=== PATIENT | female | born 1935 | race Hispanic/Latino ===

== ENCOUNTER 2016-09-29 09:55 | Outpatient (CLI) | payer MEDICARE, MEDICAID ==
[2016-09-29 10:51] LABS: Hemoglobin 10.2 g/dL (12.0-16.0)
[2016-09-29 11:04] LABS: Anion Gap 16 mmol/L (10-20); BUN (Urea Nitrogen) 28 mg/dL (9.8-20.1); Calc. Creatinine Clearance 0 mL/min (70-130); Calcium 8.7 mg/dL (7.8-10.44); Carbon Dioxide 25 mmol/L (23-31); Chloride 101 mmol/L (98-107); Estimated GFR-MDRD 51; Glucose 149 mg/dL (83-110); Potassium 4.1 mmol/L (3.5-5.1); Sodium 138 mmol/L (136-145)
[2016-09-29 18:18] LABS: Creatinine, Urine 74.31 mg/dL (47-110)
== END 2016-09-29 09:56 | disposition home or self-care (01) ==
LOC: NAV LAB 09:55
PROVIDERS: ATTEND Internal Medicine Nephrology
DX: I12.9 Hypertensive chronic kidney disease with stage 1 through stage 4 chronic kidney disease, or unspecified chronic kidney disease (principal); N18.3 Chronic kidney disease, stage 3 (moderate); D63.1 Anemia in chronic kidney disease
CPT/HCPCS: 36415; 80048; 82040; 82306; 82570; 84156; 85014; 85018

== ENCOUNTER 2017-12-21 12:23 | Emergency (ER) | payer MEDICARE, MEDICAID ==
[2017-12-21] MEDS ORDERED: Sodium Chloride 0.9% 1,000 ML ONE (12:41)
[2017-12-21 13:22] LABS: #Eosinphils 0.1 thou/uL (0.0-0.7); #Lymphocytes 1.9 thou/uL (1.20-3.40); #Monocytes 0.7 thou/uL (0.11-0.59); %Basophils 0.5 % (0.0-1.0); %Lymphocytes 24.9 % (21.0-51.0); %Monocytes 8.6 % (0.0-10.0); Hemoglobin 11.5 g/dL (12.0-16.0); Mean Corpuscular HGB CONC 31.7 g/dL (32.0-36.0); Mean Corpuscular Hemoglobin 29.1 pg (27.0-31.0); Mean Corpuscular Volume 91.8 fL (78.0-98.0); Mean Platelet Volume 7.1 fL (7.4-10.4); Platelet Count 258 thou/uL (130-400); RBC Distribution Width 14.7 % (11.5-14.5); Red Blood Cell (RBC) Count 3.94 mill/uL (4.20-5.40); White Blood Cell (WBC) Count 7.7 thou/uL (4.8-10.8)
[2017-12-21 13:36] LABS: ALT (SGPT) 13 U/L (8-55); AST (SGOT) 13 U/L (5-34); Albumin 3.7 g/dL (3.4-4.8); Alkaline Phosphatase 65 U/L (40-150); Anion Gap 17 mmol/L (10-20); BUN (Urea Nitrogen) 27 mg/dL (9.8-20.1); Bilirubin, Total 0.4 mg/dL (0.2-1.2); CK (CPK) 112 U/L (29-168); Calc. Creatinine Clearance 0 mL/min (70-130); Calcium 9.2 mg/dL (7.8-10.44); Carbon Dioxide 19 mmol/L (23-31); Chloride 106 mmol/L (98-107); Estimated GFR-MDRD 32; Glucose 251 mg/dL (83-110); Potassium 3.9 mmol/L (3.5-5.1); Protein, Total 6.7 g/dL (6.0-8.3); Sodium 138 mmol/L (136-145)
[2017-12-21 13:38] LABS: CKMB 2.2 ng/mL (0-6.6); Troponin I 0.033 ng/mL (< 0.028)
--- NOTE | 2017-12-21 14:45 | CT ---
CT HEAD NONCONTRAST: Date: 12/21/17 CLINICAL INDICATION: Altered mental status. FINDINGS: There is mild prominence of the ventricular system and moderate chronic ischemic disease involving th e cerebral white matter. There is no acute intracranial hemorrhage, mass effect, or midline shift. Th e calvarium is intact. No acute fluid level of the imaged paranasal sinuses. There is decreased pneum atization of the mastoid air cells. IMPRESSION: 1. No evidence of acute intracranial hemorrhage or mass effect. 2. Moderate chronic ischemic disease. POS: [facility]
== END 2017-12-21 14:53 | disposition short-term general hospital (02) ==
LOC: NAV ERS 12:23
DX: R00.1 Bradycardia, unspecified (principal); N28.9 Disorder of kidney and ureter, unspecified; E11.9 Type 2 diabetes mellitus without complications; E78.5 Hyperlipidemia, unspecified; I10 Essential (primary) hypertension; E03.9 Hypothyroidism, unspecified; F32.9 Major depressive disorder, single episode, unspecified; Z79.899 Other long term (current) drug therapy; Z79.84 Long term (current) use of oral hypoglycemic drugs; Z79.82 Long term (current) use of aspirin
CPT/HCPCS: 36416; 70450; 80053; 82550; 82553; 84484; 85025; 93005; J7050

== ENCOUNTER 2017-12-30 13:13 | Emergency (ER) | payer MEDICARE, MEDICAID ==
[2017-12-30] MEDS ORDERED: HYDROcodone/Acetaminophen 5/325 mg Tablet ONE (13:48)
--- NOTE | 2017-12-30 14:16 | RAD ---
3 VIEW RIGHT FOOT: Date: 12/30/17 INDICATION: Right foot pain. Arthritis. FINDINGS: Reference made to 01/04/07 exam. There is pes planus deformity. Redemonstration of heterotopic density underlying the calcaneus. There are scattered degenerative changes throughout the right foot with osseous demineralization. There is chronic malalignment of the first ray. IMPRESSION: Chronic appearing abnormalities of the right foot without evidence of an acute osseous abnormality. POS: [facility]
== END 2017-12-30 14:46 | disposition home or self-care (01) ==
LOC: NAV ERS 13:13
DX: M72.2 Plantar fascial fibromatosis (principal); M79.671 Pain in right foot; I10 Essential (primary) hypertension; E11.9 Type 2 diabetes mellitus without complications; E78.5 Hyperlipidemia, unspecified; E66.9 Obesity, unspecified; E03.9 Hypothyroidism, unspecified; F32.9 Major depressive disorder, single episode, unspecified; Z79.84 Long term (current) use of oral hypoglycemic drugs; Z79.899 Other long term (current) drug therapy; Z79.82 Long term (current) use of aspirin

== ENCOUNTER 2018-01-29 21:28 | Emergency (ER) | payer MEDICARE, MEDICAID ==
[2018-01-29] MEDS ORDERED: hydrALAZINE 20 MG/ML VIAL ONE (22:17)
[2018-01-29] MEDS ORDERED: Furosemide 40 MG/4 ML VIAL ONE (22:17)
[2018-01-29 22:27] LABS: #Basophils 0.1 thou/uL (0.0-0.2); #Lymphocytes 1.4 thou/uL (1.20-3.40); #Monocytes 0.6 thou/uL (0.11-0.59); #Neutrophils 4.9 thou/uL (1.40-6.50); %Basophils 0.8 % (0.0-1.0); %Eosinophils 0.7 % (0.0-10.0); %Lymphocytes 20.4 % (21.0-51.0); %Neutrophils 70.1 % (42.0-75.0); Hemoglobin 10.4 g/dL (12.0-16.0); Mean Corpuscular HGB CONC 31.4 g/dL (32.0-36.0); Mean Corpuscular Hemoglobin 28.7 pg (27.0-31.0); Mean Corpuscular Volume 91.5 fL (78.0-98.0); Mean Platelet Volume 7.5 fL (7.4-10.4); PLT Morphology Comment Appears Adequate; Platelet Count 140 thou/uL (130-400); RBC Morphology Normal; Red Blood Cell (RBC) Count 3.61 mill/uL (4.20-5.40); White Blood Cell (WBC) Count 6.9 thou/uL (4.8-10.8)
[2018-01-29 22:30] LABS: ALT (SGPT) 13 U/L (8-55); AST (SGOT) 13 U/L (5-34); Albumin 3.9 g/dL (3.4-4.8); Alkaline Phosphatase 79 U/L (40-150); Anion Gap 17 mmol/L (10-20); BUN (Urea Nitrogen) 24 mg/dL (9.8-20.1); Bilirubin, Total 0.3 mg/dL (0.2-1.2); CK (CPK) 60 U/L (29-168); Calc. Creatinine Clearance 0 mL/min (70-130); Calcium 9.5 mg/dL (7.8-10.44); Carbon Dioxide 21 mmol/L (23-31); Chloride 104 mmol/L (98-107); Estimated GFR-MDRD 52; Glucose 268 mg/dL (83-110); Potassium 4.5 mmol/L (3.5-5.1); Protein, Total 6.9 g/dL (6.0-8.3); Sodium 137 mmol/L (136-145)
[2018-01-29 22:32] LABS: CKMB 1.4 ng/mL (0-6.6); Troponin I 0.025 ng/mL (< 0.028)
[2018-01-29] MEDS ORDERED: Metoprolol Tartrate 5 MG/5 ML VIAL ONE (23:14)
--- NOTE | 2018-01-29 23:43 | RAD ---
FRONTAL RADIOGRAPH CHEST 01/29/18 COMPARISON: None. HISTORY: Hypertension and edema. FINDINGS: There are old posterolateral right sided rib fractures. There is no pneumothorax, pleural fluid, loba r consolidation, or alveolar edema. IMPRESSION: No acute findings. POS: [facility]
[2018-01-29] MEDS ORDERED: Acetaminophen 500 MG TAB ONE (23:45)
[2018-01-30] MEDS ORDERED: Acetaminophen 500 MG TAB ONE (00:31)
== END 2018-01-30 01:30 | disposition home or self-care (01) ==
LOC: NAV ERS 21:28
DX: I10 Essential (primary) hypertension (principal); E11.9 Type 2 diabetes mellitus without complications; E78.5 Hyperlipidemia, unspecified; E03.9 Hypothyroidism, unspecified; F32.9 Major depressive disorder, single episode, unspecified; Z79.82 Long term (current) use of aspirin; Z79.899 Other long term (current) drug therapy; Z79.84 Long term (current) use of oral hypoglycemic drugs
CPT/HCPCS: 71045; 80053; 82550; 82553; 83880; 84484; 85025; 93005; 96374; 96375; J0360; J1940

== ENCOUNTER 2018-03-21 23:32 | Emergency (ER) | payer MEDICARE, MEDICAID ==
[2018-03-22] MEDS ORDERED: Ondansetron ODT 4 MG TAB ONE (00:12)
[2018-03-22 00:19] LABS: #Lymphocytes 1.3 thou/uL (1.20-3.40); #Monocytes 0.6 thou/uL (0.11-0.59); #Neutrophils 4.4 thou/uL (1.40-6.50); %Basophils 0.5 % (0.0-1.0); %Eosinophils 0.7 % (0.0-10.0); %Lymphocytes 20.4 % (21.0-51.0); %Neutrophils 69.4 % (42.0-75.0); Hemoglobin 10.7 g/dL (12.0-16.0); Mean Corpuscular HGB CONC 31.9 g/dL (32.0-36.0); Mean Corpuscular Volume 90.8 fL (78.0-98.0); Mean Platelet Volume 7.4 fL (7.4-10.4); Platelet Count 254 thou/uL (130-400); RBC Distribution Width 14.4 % (11.5-14.5); White Blood Cell (WBC) Count 6.3 thou/uL (4.8-10.8)
[2018-03-22 00:39] LABS: ALT (SGPT) 15 U/L (8-55); AST (SGOT) 12 U/L (5-34); Albumin 4.1 g/dL (3.4-4.8); Alkaline Phosphatase 91 U/L (40-150); Anion Gap 16 mmol/L (10-20); BUN (Urea Nitrogen) 24 mg/dL (9.8-20.1); Bilirubin, Total 0.3 mg/dL (0.2-1.2); Calc. Creatinine Clearance 0 mL/min (70-130); Calcium 9.8 mg/dL (7.8-10.44); Carbon Dioxide 21 mmol/L (23-31); Chloride 103 mmol/L (98-107); Estimated GFR-MDRD 39; Globulin 3.3 g/dL (2.4-3.5); Glucose 319 mg/dL (83-110); Protein, Total 7.4 g/dL (6.0-8.3); Sodium 136 mmol/L (136-145)
== END 2018-03-22 00:50 | disposition home or self-care (01) ==
LOC: NAV ERS 23:32
DX: E11.65 Type 2 diabetes mellitus with hyperglycemia (principal); I10 Essential (primary) hypertension; E78.5 Hyperlipidemia, unspecified; E03.9 Hypothyroidism, unspecified; Z79.82 Long term (current) use of aspirin; Z79.899 Other long term (current) drug therapy; Z79.84 Long term (current) use of oral hypoglycemic drugs
CPT/HCPCS: 36415; 80053; 84484; 85025; 93005; Q0162

== ENCOUNTER 2018-03-28 00:37 | Emergency (ER) | payer MEDICARE, MEDICAID | END 2018-03-28 01:10 | disposition home or self-care (01) | LOC: NAV ERS 00:37 | DX: E11.65 Type 2 diabetes mellitus with hyperglycemia (principal); I10 Essential (primary) hypertension; R19.7 Diarrhea, unspecified; F32.9 Major depressive disorder, single episode, unspecified; E78.5 Hyperlipidemia, unspecified; E66.9 Obesity, unspecified; E03.9 Hypothyroidism, unspecified; Z79.899 Other long term (current) drug therapy; Z79.84 Long term (current) use of oral hypoglycemic drugs; Z79.82 Long term (current) use of aspirin | CPT/HCPCS: 36416; 93005 ==

== ENCOUNTER 2018-03-31 16:34 | Emergency (ER) | payer MEDICARE, MEDICAID ==
[2018-03-31] MEDS ORDERED: methylPREDNISolone Sod Succ/PF 125 MG/2 ML VIAL ONE (17:09)
[2018-03-31] MEDS ORDERED: diphenhydrAMINE 50 MG/ML VIAL ONE (17:09)
[2018-03-31] MEDS ORDERED: Sodium Chloride 0.9% 1,000 ML ONE (17:09)
[2018-03-31 17:30] LABS: #Basophils 0.1 thou/uL (0.0-0.2); #Eosinphils 0.1 thou/uL (0.0-0.7); #Lymphocytes 1.7 thou/uL (1.20-3.40); #Monocytes 0.6 thou/uL (0.11-0.59); #Neutrophils 5.3 thou/uL (1.40-6.50); %Basophils 0.8 % (0.0-1.0); %Eosinophils 1.1 % (0.0-10.0); %Lymphocytes 21.9 % (21.0-51.0); %Monocytes 7.4 % (0.0-10.0); %Neutrophils 68.8 % (42.0-75.0); Hemoglobin 11.4 g/dL (12.0-16.0); Mean Corpuscular HGB CONC 30.7 g/dL (32.0-36.0); Mean Corpuscular Hemoglobin 28.2 pg (27.0-31.0); Mean Corpuscular Volume 91.9 fL (78.0-98.0); Mean Platelet Volume 7.3 fL (7.4-10.4); Platelet Count 298 thou/uL (130-400); RBC Distribution Width 14.9 % (11.5-14.5); Red Blood Cell (RBC) Count 4.05 mill/uL (4.20-5.40); White Blood Cell (WBC) Count 7.6 thou/uL (4.8-10.8)
[2018-03-31 17:46] LABS: ALT (SGPT) 12 U/L (8-55); AST (SGOT) 13 U/L (5-34); Albumin 4.1 g/dL (3.4-4.8); Alkaline Phosphatase 77 U/L (40-150); Anion Gap 20 mmol/L (10-20); BUN (Urea Nitrogen) 25 mg/dL (9.8-20.1); Bilirubin, Total 0.2 mg/dL (0.2-1.2); Calc. Creatinine Clearance 0 mL/min (70-130); Calcium 9.7 mg/dL (7.8-10.44); Carbon Dioxide 20 mmol/L (23-31); Chloride 102 mmol/L (98-107); Estimated GFR-MDRD 45; Globulin 3.1 g/dL (2.4-3.5); Glucose 292 mg/dL (83-110); Potassium 5.5 mmol/L (3.5-5.1); Protein, Total 7.2 g/dL (6.0-8.3); Sodium 136 mmol/L (136-145)
--- NOTE | 2018-03-31 17:58 | RAD ---
RADIOGRAPH CHEST 1 VIEW: 03/31/18 HISTORY: 82-year-old female with chest pain and dyspnea. FINDINGS: There are no air space densities, pulmonary edema, pneumothorax, or cardiomegaly. The lateral costop hrenic angles are sharp. IMPRESSION: No acute cardiopulmonary findings. tami [] POS: [facility]
[2018-03-31] MEDS ORDERED: Insulin Regular 300 UNITS/3 ML VIAL ONE (18:18)
[2018-03-31 20:46] LABS: Anion Gap 16 mmol/L (10-20); BUN (Urea Nitrogen) 24 mg/dL (9.8-20.1); Calc. Creatinine Clearance 0 mL/min (70-130); Calcium 9.8 mg/dL (7.8-10.44); Carbon Dioxide 22 mmol/L (23-31); Chloride 108 mmol/L (98-107); Estimated GFR-MDRD 46; Glucose 218 mg/dL (83-110); Potassium 4.5 mmol/L (3.5-5.1); Sodium 141 mmol/L (136-145)
[2018-03-31 20:50] LABS: Troponin I Less than 0.010 ng/mL (< 0.028)
[2018-04-01 02:54] LABS: Troponin I Less than 0.010 ng/mL (< 0.028)
== END 2018-04-01 04:41 | disposition home or self-care (01) ==
LOC: NAV ERS 16:34
DX: R07.89 Other chest pain (principal); E11.65 Type 2 diabetes mellitus with hyperglycemia; E87.5 Hyperkalemia; E66.9 Obesity, unspecified; E03.9 Hypothyroidism, unspecified; M19.90 Unspecified osteoarthritis, unspecified site; G47.30 Sleep apnea, unspecified; F32.9 Major depressive disorder, single episode, unspecified; Z79.899 Other long term (current) drug therapy; Z79.84 Long term (current) use of oral hypoglycemic drugs; Z79.82 Long term (current) use of aspirin
CPT/HCPCS: 36415; 71045; 80053; 84484; 85025; 93005; 96361; 96374; 96375; J1200; J1815; J2930; J7050

== ENCOUNTER 2018-04-04 22:37 | Emergency (ER) | payer MEDICARE, MEDICAID ==
[2018-04-04] MEDS ORDERED: Sodium Chloride 0.9% 1,000 ML ONE (23:10)
[2018-04-04 23:34] LABS: Hemoglobin 10.8 g/dL (12.0-16.0); Lymphocytes 10 % (21-51); MDiff Complete? YES; Mean Corpuscular HGB CONC 30.3 g/dL (32.0-36.0); Mean Corpuscular Volume 92.5 fL (78.0-98.0); Mean Platelet Volume 7.3 fL (7.4-10.4); Monocytes 4 % (0-10); Neutrophil 86 % (42-75); Platelet Count 270 thou/uL (130-400); Platelet Morphology Comment Appears Adequate; RBC Distribution Width 14.6 % (11.5-14.5); RBC Morphology Normal; Red Blood Cell (RBC) Count 3.87 mill/uL (4.20-5.40); White Blood Cell (WBC) Count 8.1 thou/uL (4.8-10.8)
[2018-04-04 23:35] LABS: Calcium, Ionized 1.21 mmol/L (1.12-1.32); Hemoglobin - Calc 12.5 g/dL (12.0-18.0); Potassium 4.6 mmol/L (3.4-4.7); T. Carbon Dioxide 28.1 mmol/L (1.0-85.0)
[2018-04-04 23:36] LABS: pH (Venous) 7.392 (7.35-7.45)
[2018-04-04 23:37] LABS: ALT (SGPT) 19 U/L (8-55); AST (SGOT) 17 U/L (5-34); Albumin 4.3 g/dL (3.4-4.8); Alkaline Phosphatase 102 U/L (40-150); Anion Gap 20 mmol/L (10-20); BUN (Urea Nitrogen) 38 mg/dL (9.8-20.1); Base Excess-Venous 1.5 mmol/L (0 (+/- 2.5)); Bicarbonate (HCO3v) 26.8 mmol/L (22.0-29.0); Bilirubin, Total 0.3 mg/dL (0.2-1.2); Calc. Creatinine Clearance 0 mL/min (70-130); Calcium 10.6 mg/dL (7.8-10.44); Carbon Dioxide 22 mmol/L (23-31); Chloride 96 mmol/L (98-107); Estimated GFR-MDRD 33; Globulin 3.7 g/dL (2.4-3.5); Glucose 539 mg/dL (83-110); Potassium 4.8 mmol/L (3.5-5.1); Sodium 133 mmol/L (136-145); vO2 Saturation-calc 97.3 % (94-98)
[2018-04-05] MEDS ORDERED: Sodium Chloride 0.9% 1,000 ML ONE (00:23)
== END 2018-04-05 02:07 | disposition home or self-care (01) ==
LOC: NAV ERS 22:37
DX: E11.65 Type 2 diabetes mellitus with hyperglycemia (principal); I10 Essential (primary) hypertension; E78.5 Hyperlipidemia, unspecified; E66.9 Obesity, unspecified; E03.9 Hypothyroidism, unspecified; G47.30 Sleep apnea, unspecified; F32.9 Major depressive disorder, single episode, unspecified; Z79.899 Other long term (current) drug therapy; Z79.84 Long term (current) use of oral hypoglycemic drugs; Z79.82 Long term (current) use of aspirin
CPT/HCPCS: 36415; 36416; 80053; 82330; 82803; 85014; 85025; 94760; 96360; 96361; J7050

== ENCOUNTER 2018-04-20 22:07 | Emergency (ER) | payer MEDICARE, MEDICAID | END 2018-04-20 22:51 | disposition home or self-care (01) | LOC: NAV ERS 22:07 | DX: F41.9 Anxiety disorder, unspecified (principal); F32.9 Major depressive disorder, single episode, unspecified; E78.5 Hyperlipidemia, unspecified; E11.9 Type 2 diabetes mellitus without complications; I10 Essential (primary) hypertension; E66.9 Obesity, unspecified; E03.9 Hypothyroidism, unspecified; G47.30 Sleep apnea, unspecified; Z79.82 Long term (current) use of aspirin; Z79.84 Long term (current) use of oral hypoglycemic drugs; Z79.899 Other long term (current) drug therapy | CPT/HCPCS: 36416; 93005 ==

== ENCOUNTER 2018-05-19 10:59 | Emergency (ER) | payer MEDICARE, OTHER ==
[2018-05-19 11:52] LABS: #Basophils 0.1 thou/uL (0.0-0.2); #Eosinphils 0.1 thou/uL (0.0-0.7); #Lymphocytes 1.8 thou/uL (1.20-3.40); #Monocytes 0.7 thou/uL (0.11-0.59); #Neutrophils 5.1 thou/uL (1.40-6.50); %Basophils 0.8 % (0.0-1.0); %Lymphocytes 23.2 % (21.0-51.0); %Monocytes 8.5 % (0.0-10.0); %Neutrophils 66.5 % (42.0-75.0); Mean Corpuscular HGB CONC 30.1 g/dL (32.0-36.0); Mean Corpuscular Hemoglobin 28.3 pg (27.0-31.0); Mean Corpuscular Volume 93.9 fL (78.0-98.0); Mean Platelet Volume 7.4 fL (7.4-10.4); Platelet Count 232 thou/uL (130-400); RBC Distribution Width 16.1 % (11.5-14.5); Red Blood Cell (RBC) Count 3.52 mill/uL (4.20-5.40); White Blood Cell (WBC) Count 7.6 thou/uL (4.8-10.8)
[2018-05-19] MEDS ORDERED: Sodium Chloride 0.9% 500 ML ONE (12:03)
--- NOTE | 2018-05-19 12:06 | RAD ---
CHEST 1 VIEW: Date: 05/19/18 HISTORY: Chest pain. Shortness of breath. COMPARISON: Radiograph dated 03/31/18. FINDINGS: Heart size upper limits of normal. Mild pulmonary venous congestion. Old right-sided rib fractures wi th callus formation. No pneumothorax or large effusion. IMPRESSION: Cardiomegaly and mild pulmonary venous congestion. POS: [facility]
[2018-05-19 13:01] LABS: Bilirubin Negative (Negative); Blood, Urine Trace (Negative); Clarity Clear (Clear); Glucose, Urine (Dipstick) 500 mg/dL (Negative); Leukocyte Small (Negative); Nitrite Positive (Negative); Protein, Urine (Dipstick) Trace mg/dL (Neg-Trace); Specific Gravity, Urine 1.015 (1.005-1.030); Urobilinogen 0.2 mg/dL (0.2-1.0); pH, Urine 5.5 (5.0-9.0)
[2018-05-19 13:12] LABS: Bacteria/HPF 2+ HPF (None Seen); Other Microscopic Description NO; RBC/HPF 0-3 HPF (0-3); Squamous Epithelial 0-3 HPF (0-3); WBC/HPF 21-50 HPF (0-3)
[2018-05-19 14:03] LABS: ALT (SGPT) 33 U/L (8-55); AST (SGOT) 43 U/L (5-34); Albumin 3.9 g/dL (3.4-4.8); Alkaline Phosphatase 75 U/L (40-150); Anion Gap 17 mmol/L (10-20); BUN (Urea Nitrogen) 40 mg/dL (9.8-20.1); Bilirubin, Total 0.2 mg/dL (0.2-1.2); Calc. Creatinine Clearance 0 mL/min (70-130); Calcium 9.5 mg/dL (7.8-10.44); Carbon Dioxide 17 mmol/L (23-31); Chloride 104 mmol/L (98-107); Estimated GFR-MDRD 38; Globulin 2.9 g/dL (2.4-3.5); Glucose 273 mg/dL (83-110); Potassium 4.3 mmol/L (3.5-5.1); Protein, Total 6.8 g/dL (6.0-8.3); Sodium 134 mmol/L (136-145)
[2018-05-19] MEDS ORDERED: Sodium Chloride 0.9% 250 ML 250 ML ONE (14:43)
== END 2018-05-19 15:46 | disposition short-term general hospital (02) ==
LOC: NAV ERS 10:59
DX: A41.9 Sepsis, unspecified organism (principal); N39.0 Urinary tract infection, site not specified; E11.9 Type 2 diabetes mellitus without complications; E78.5 Hyperlipidemia, unspecified; E66.9 Obesity, unspecified; E03.9 Hypothyroidism, unspecified; G47.30 Sleep apnea, unspecified; F41.9 Anxiety disorder, unspecified; F32.9 Major depressive disorder, single episode, unspecified; Z79.899 Other long term (current) drug therapy; Z79.84 Long term (current) use of oral hypoglycemic drugs
CPT/HCPCS: 36415; 51701; 71045; 80053; 81003; 81015; 82550; 83605; 83880; 84484; 85025; 87040; 87077; 87086; 87149; 87186; 87804; 93005; 96361; 96365; 96375; A4353; J1956; J3370; J7050

== ENCOUNTER 2018-09-28 01:16 | Emergency (ER) | payer MEDICARE, MEDICAID ==
[2018-09-28] MEDS ORDERED: Aspirin Chewable 81 MG TAB ONE ×2 (01:35→01:36)
[2018-09-28] MEDS ORDERED: Nitroglycerin 0.4 MG TAB (25 Tab Bottle) ONE (01:47)
[2018-09-28] MEDS ORDERED: Ondansetron PF 4 MG/2 ML Vial ONE (01:47)
[2018-09-28 01:48] LABS: #Basophils 0.1 thou/uL (0.0-0.2); #Eosinphils 0.1 thou/uL (0.0-0.7); #Monocytes 0.6 thou/uL (0.11-0.59); %Basophils 1.2 % (0.0-1.0); %Eosinophils 1.5 % (0.0-10.0); %Neutrophils 59.3 % (42.0-75.0); Hemoglobin 9.1 g/dL (12.0-16.0); Mean Corpuscular HGB CONC 30.9 g/dL (32.0-36.0); Mean Corpuscular Hemoglobin 29.6 pg (27.0-31.0); Mean Corpuscular Volume 95.8 fL (78.0-98.0); Mean Platelet Volume 7.5 fL (7.4-10.4); Platelet Count 237 thou/uL (130-400); Red Blood Cell (RBC) Count 3.06 mill/uL (4.20-5.40); White Blood Cell (WBC) Count 6.7 thou/uL (4.8-10.8)
[2018-09-28 02:01] LABS: ALT (SGPT) 248 U/L (8-55); AST (SGOT) 347 U/L (5-34); Albumin 3.8 g/dL (3.4-4.8); Alkaline Phosphatase 131 U/L (40-150); Anion Gap 17 mmol/L (10-20); BUN (Urea Nitrogen) 30 mg/dL (9.8-20.1); Bilirubin, Total 0.4 mg/dL (0.2-1.2); Calc. Creatinine Clearance 0 mL/min (70-130); Calcium 8.9 mg/dL (7.8-10.44); Carbon Dioxide 20 mmol/L (23-31); Chloride 101 mmol/L (98-107); Estimated GFR-MDRD 41; Glucose 186 mg/dL (83-110); Potassium 5.3 mmol/L (3.5-5.1); Protein, Total 6.8 g/dL (6.0-8.3); Sodium 133 mmol/L (136-145)
[2018-09-28] MEDS ORDERED: Furosemide 40 MG/4 ML VIAL ONE (02:19)
--- NOTE | 2018-09-28 07:55 | RAD ---
PORTABLE CHEST ONE VIEW: 09/28/2018 1:28 a.m. HISTORY: Chest pain. COMPARISON: 07/22/2018 FINDINGS: The heart size is normal. There is mild pulmonary vascular congestion. No lobar consolidation, pneu mothoraces, or pleural effusions are seen. Old right-sided rib fractures are again noted. POS: [facility]
== END 2018-09-28 02:32 | disposition short-term general hospital (02) ==
LOC: NAV ERS 01:16
DX: I11.0 Hypertensive heart disease with heart failure (principal); I50.9 Heart failure, unspecified; D64.9 Anemia, unspecified; G47.30 Sleep apnea, unspecified; F32.9 Major depressive disorder, single episode, unspecified; F41.9 Anxiety disorder, unspecified; Z79.899 Other long term (current) drug therapy; Z79.82 Long term (current) use of aspirin; Z79.84 Long term (current) use of oral hypoglycemic drugs
CPT/HCPCS: 71045; 80053; 83880; 84484; 85025; 93005; 94760; 96374; 96375; J1940; J2405

== ENCOUNTER 2018-12-22 11:15 | Emergency (ER) | payer MEDICARE, MEDICAID | END 2018-12-22 12:00 | disposition home or self-care (01) | LOC: NAV ERS 11:15 | DX: H57.89 Other specified disorders of eye and adnexa (principal); E11.9 Type 2 diabetes mellitus without complications; E78.5 Hyperlipidemia, unspecified; I10 Essential (primary) hypertension; E03.9 Hypothyroidism, unspecified; M19.90 Unspecified osteoarthritis, unspecified site; G47.30 Sleep apnea, unspecified; E66.9 Obesity, unspecified; F41.9 Anxiety disorder, unspecified; F32.9 Major depressive disorder, single episode, unspecified; Z79.82 Long term (current) use of aspirin; Z79.899 Other long term (current) drug therapy | CPT/HCPCS: 99281 ==

== ENCOUNTER 2019-01-25 14:12 | Emergency (ER) | payer MEDICARE, MEDICAID ==
--- NOTE | 2019-01-25 14:57 | RAD ---
XR Foot Rt 3 View STANDARD INDICATION: History right foot pain COMPARISON: December 30, 2017 right foot radiographs FINDINGS: Bones: There is diffuse osteopenia. There is postprocedural change of a right great toe bunionectomy. . Joints: There is stable scattered IP osteoarthrosis involving the forefoot. There is stable osteoarth rosis involving the mid foot there is stable advanced osteoarthrosis of the right great toe MTP joint.. Lisfranc alignment: Lisfranc alignment appears within normal limits. Soft tissues: Soft tissue calcification seen plantar to the calcaneus is stable. IMPRESSION: No acute osseous abnormality. Stable exam.
== END 2019-01-25 15:12 | disposition home or self-care (01) ==
LOC: NAV ERS 14:12
DX: M19.071 Primary osteoarthritis, right ankle and foot (principal); E66.9 Obesity, unspecified; G47.30 Sleep apnea, unspecified; E78.5 Hyperlipidemia, unspecified; I10 Essential (primary) hypertension; F41.9 Anxiety disorder, unspecified; F32.9 Major depressive disorder, single episode, unspecified; Z79.899 Other long term (current) drug therapy; Z79.82 Long term (current) use of aspirin

== ENCOUNTER 2019-04-04 11:33 | Emergency (ER) | payer MEDICARE, MEDICAID ==
--- NOTE | 2019-04-04 12:15 | RAD ---
EXAM: Single view of the chest HISTORY: Chest pain COMPARISON: 09/28/2018 FINDINGS: Single view of the chest shows a normal sized cardiomediastinal silhouette. There is no nasir dence of consolidation, mass, or pleural effusion. The bones are unremarkable. IMPRESSION: No evidence of acute cardiopulmonary disease
[2019-04-04 12:32] LABS: #Eosinphils 0.1 thou/uL (0.0-0.7); #Lymphocytes 1.4 thou/uL (1.20-3.40); #Monocytes 0.6 thou/uL (0.11-0.59); #Neutrophils 5.6 thou/uL (1.40-6.50); %Basophils 0.5 % (0.0-1.0); %Eosinophils 1.2 % (0.0-10.0); %Lymphocytes 18.4 % (21.0-51.0); %Monocytes 7.4 % (0.0-10.0); %Neutrophils 72.4 % (42.0-75.0); Hemoglobin 11.1 g/dL (12.0-16.0); Mean Corpuscular HGB CONC 31.8 g/dL (32.0-36.0); Platelet Count 233 thou/uL (130-400); Red Blood Cell (RBC) Count 3.47 mill/uL (4.20-5.40); White Blood Cell (WBC) Count 7.7 thou/uL (4.8-10.8)
[2019-04-04 12:44] LABS: ALT (SGPT) 14 U/L (8-55); AST (SGOT) 15 U/L (5-34); Albumin 4.1 g/dL (3.4-4.8); Alkaline Phosphatase 63 U/L (40-110); Anion Gap 18 mmol/L (10-20); BUN (Urea Nitrogen) 70 mg/dL (9.8-20.1); Bilirubin, Total 0.3 mg/dL (0.2-1.2); CK (CPK) 49 U/L (29-168); Calc. Creatinine Clearance 0 mL/min (70-130); Calcium 9.2 mg/dL (7.8-10.44); Carbon Dioxide 24 mmol/L (23-31); Chloride 99 mmol/L (98-107); Estimated GFR-MDRD 30; Globulin 3.2 g/dL (2.4-3.5); Glucose 328 mg/dL (83-110); Potassium 4.2 mmol/L (3.5-5.1); Protein, Total 7.3 g/dL (6.0-8.3); Sodium 137 mmol/L (136-145)
[2019-04-04] MEDS ORDERED: Sodium Chloride 0.9% 1,000 ML ONE (14:00)
[2019-04-04] MEDS ORDERED: Aspirin Chewable 81 MG TAB ONE (14:00)
[2019-04-04 14:27] LABS: Bilirubin Negative (Negative); Blood, Urine Trace (Negative); Glucose, Urine (Dipstick) 100 mg/dL (Negative); Leukocyte Large (Negative); Nitrite Positive (Negative); Protein, Urine (Dipstick) Negative (Neg-Trace); Urobilinogen 0.2 mg/dL (Less than 2)
[2019-04-04 14:32] LABS: Clarity SL HAZY (Clear)
[2019-04-04 14:33] LABS: Bacteria/HPF 4+ HPF (None Seen); RBC/HPF 0-3 HPF (0-3); Renal Epithelial 0-3 HPF (None Seen); Squamous Epithelial 0-3 HPF (0-3); Transitional Epithelial 0-3 HPF (None Seen)
[2019-04-04] MEDS ORDERED: cefTRIAXone\\ROCEPHIN 1 GM VIAL ONE (14:40)
== END 2019-04-04 16:15 | disposition short-term general hospital (02) ==
LOC: NAV ERS 11:33
DX: R07.9 Chest pain, unspecified (principal); R09.02 Hypoxemia; N39.0 Urinary tract infection, site not specified; E66.9 Obesity, unspecified; I25.10 Atherosclerotic heart disease of native coronary artery without angina pectoris; E11.9 Type 2 diabetes mellitus without complications; E78.5 Hyperlipidemia, unspecified; I10 Essential (primary) hypertension; E03.9 Hypothyroidism, unspecified; M19.90 Unspecified osteoarthritis, unspecified site; G47.30 Sleep apnea, unspecified; F32.9 Major depressive disorder, single episode, unspecified; F41.9 Anxiety disorder, unspecified; Z79.82 Long term (current) use of aspirin; Z79.899 Other long term (current) drug therapy
CPT/HCPCS: 71045; 80053; 81003; 81015; 82550; 84484; 85025; 87077; 87086; 87186; 93005; 96361; 96374; J0696; J7050

== ENCOUNTER 2019-04-17 19:06 | Emergency (ER) | payer MEDICARE, MEDICAID ==
[2019-04-17 19:27] LABS: #Monocytes 0.4 thou/uL (0.11-0.59); #Neutrophils 4.8 thou/uL (1.40-6.50); %Basophils 0.4 % (0.0-1.0); %Eosinophils 0.3 % (0.0-10.0); %Lymphocytes 16.1 % (21.0-51.0); %Monocytes 6.4 % (0.0-10.0); %Neutrophils 76.8 % (42.0-75.0); Hemoglobin 10.5 g/dL (12.0-16.0); Mean Corpuscular HGB CONC 31.8 g/dL (32.0-36.0); Mean Corpuscular Hemoglobin 32.6 pg (27.0-31.0); Mean Platelet Volume 7.4 fL (7.4-10.4); Platelet Count 226 thou/uL (130-400); RBC Distribution Width 14.2 % (11.5-14.5); Red Blood Cell (RBC) Count 3.24 mill/uL (4.20-5.40); White Blood Cell (WBC) Count 6.2 thou/uL (4.8-10.8)
[2019-04-17 19:47] LABS: ALT (SGPT) 19 U/L (8-55); AST (SGOT) 18 U/L (5-34); Albumin 3.8 g/dL (3.4-4.8); Alkaline Phosphatase 73 U/L (40-110); Anion Gap 18 mmol/L (10-20); BUN (Urea Nitrogen) 48 mg/dL (9.8-20.1); Bilirubin, Total 0.2 mg/dL (0.2-1.2); CK (CPK) 44 U/L (29-168); Calc. Creatinine Clearance 0 mL/min (70-130); Calcium 9.1 mg/dL (7.8-10.44); Carbon Dioxide 25 mmol/L (23-31); Chloride 97 mmol/L (98-107); Estimated GFR-MDRD 27; Globulin 3.1 g/dL (2.4-3.5); Glucose 325 mg/dL (83-110); Potassium 5.3 mmol/L (3.5-5.1); Protein, Total 6.9 g/dL (6.0-8.3); Sodium 135 mmol/L (136-145)
[2019-04-17] MEDS ORDERED: Aspirin Chewable 81 MG TAB ONE (20:22)
--- NOTE | 2019-04-17 20:31 | RAD ---
CHEST ONE VIEW: History: Shortness of breath. Chest pressure. Comparison: 04-04-2019 FINDINGS: Normal cardiac silhouette. Pulmonary vessels and hilum are normal. Costophrenic angles are clear. No masses or consolidation. Remote right rib fracture. IMPRESSION: No acute cardiopulmonary process. POS: [facility]
== END 2019-04-17 21:55 | disposition short-term general hospital (02) ==
LOC: NAV ERS 19:06
DX: R00.1 Bradycardia, unspecified (principal); E11.9 Type 2 diabetes mellitus without complications; E78.5 Hyperlipidemia, unspecified; E66.9 Obesity, unspecified; E78.00 Pure hypercholesterolemia, unspecified; E03.9 Hypothyroidism, unspecified; M19.90 Unspecified osteoarthritis, unspecified site; G47.30 Sleep apnea, unspecified; F41.9 Anxiety disorder, unspecified; F32.9 Major depressive disorder, single episode, unspecified; Z79.82 Long term (current) use of aspirin; Z79.84 Long term (current) use of oral hypoglycemic drugs; Z79.899 Other long term (current) drug therapy
CPT/HCPCS: 71045; 80053; 82550; 84484; 85025; 93005; 96374; J1610

== ENCOUNTER 2020-09-04 11:50 | Outpatient (CLI) | payer MEDICARE, OTHER | END 2020-09-04 11:51 | disposition home or self-care (01) | LOC: NAV RAD 11:50 | PROVIDERS: ATTEND Family Medicine | DX: M25.571 Pain in right ankle and joints of right foot (principal); M25.572 Pain in left ankle and joints of left foot ==

== ENCOUNTER 2020-09-11 15:57 | Outpatient (CLI) | payer MEDICARE, MEDICAID | END 2020-09-11 15:58 | disposition home or self-care (01) | LOC: NAV RAD 15:57 | PROVIDERS: ATTEND Family Medicine | DX: M25.551 Pain in right hip (principal); M25.552 Pain in left hip ==

== ENCOUNTER 2020-11-06 11:47 | Outpatient (CLI) | payer MEDICARE, MEDICAID, OTHER | END 2020-11-06 11:48 | disposition home or self-care (01) | LOC: NAV RAD 11:47 | PROVIDERS: ATTEND Family Medicine | DX: I50.33 Acute on chronic diastolic (congestive) heart failure (principal); I51.7 Cardiomegaly | CPT/HCPCS: 71046 ==

== ENCOUNTER 2020-11-07 18:23 | Emergency (ER) | payer MEDICARE, MEDICAID, OTHER ==
[2020-11-07] MEDS ORDERED: Nitroglycerin 2% Ointment 1 INCH/1 GM Packet ONE (19:00)
[2020-11-07 19:23] LABS: #Eosinphils 0.4 thou/uL (0.0-0.7); #Monocytes 0.5 thou/uL (0.11-0.59); #Neutrophils 4.1 thou/uL (1.40-6.50); %Basophils 0.8 % (0.0-1.0); %Lymphocytes 16.4 % (21.0-51.0); %Monocytes 8.3 % (0.0-10.0); %Neutrophils 67.5 % (42.0-75.0); Hemoglobin 8.5 g/dL (12.0-16.0); Mean Corpuscular HGB CONC 29.2 g/dL (32.0-36.0); Mean Corpuscular Hemoglobin 31.3 pg (27.0-31.0); Mean Platelet Volume 5.6 fL (7.4-10.4); Platelet Count 174 thou/uL (130-400); RBC Distribution Width 17.2 % (11.5-14.5); White Blood Cell (WBC) Count 6.1 thou/uL (4.8-10.8)
[2020-11-07 19:38] LABS: ALT (SGPT) 16 U/L (8-55); AST (SGOT) 20 U/L (5-34); Albumin 3.8 g/dL (3.4-4.8); Alkaline Phosphatase 84 U/L (40-110); Anion Gap 12 mmol/L (10-20); BUN (Urea Nitrogen) 44 mg/dL (9.8-20.1); Bilirubin, Total 0.5 mg/dL (0.2-1.2); Calc. Creatinine Clearance 0 mL/min (70-130); Calcium 9.4 mg/dL (7.8-10.44); Carbon Dioxide 22 mmol/L (23-31); Chloride 109 mmol/L (98-107); Globulin 3.5 g/dL (2.4-3.5); Magnesium 2.1 mg/dL (1.6-2.6); Potassium 5.3 mmol/L (3.5-5.1); Protein, Total 7.3 g/dL (5.8-8.1); Sodium 138 mmol/L (136-145)
[2020-11-07 19:42] LABS: Glucose 56 mg/dL (83-110)
[2020-11-07] MEDS ORDERED: Furosemide 40 MG/4 ML VIAL ONE (20:59)
[2020-11-07] MEDS ORDERED: hydrALAZINE 20 MG/ML VIAL ONE (21:28)
[2020-11-07] MEDS ORDERED: Furosemide 20 MG/2 ML VIAL ONE (22:31)
[2020-11-07] MEDS ORDERED: Aspirin Chewable 81 MG TAB ONE (22:31)
[2020-11-07 23:13] LABS: SARS-CoV-2 NAA Rapid Test Not Detected (NotDetected)
[2020-11-07 23:50] LABS: Troponin I 0.017 ng/mL (< 0.028)
== END 2020-11-07 23:27 | disposition short-term general hospital (02) ==
LOC: NAV ERS 18:23
DX: I11.0 Hypertensive heart disease with heart failure (principal); I50.9 Heart failure, unspecified; R00.1 Bradycardia, unspecified; Z20.822 Contact with and (suspected) exposure to COVID-19; E11.9 Type 2 diabetes mellitus without complications; E87.5 Hyperkalemia; G47.30 Sleep apnea, unspecified; E66.9 Obesity, unspecified; E03.9 Hypothyroidism, unspecified; M19.90 Unspecified osteoarthritis, unspecified site; Z79.82 Long term (current) use of aspirin; Z79.899 Other long term (current) drug therapy
CPT/HCPCS: 71045; 80053; 82962; 83735; 83880; 84484 ×2; 85025; 93005; 94760; U0002; 36416; 96374; 96375; 96376; 36415-59; J0360; J1940

== ENCOUNTER 2022-06-29 16:19 | Emergency (ER) | payer OTHER | END 2022-06-29 17:51 | disposition home or self-care (01) | LOC: NAV ERS 16:19 | DX: S00.03XA Contusion of scalp, initial encounter (principal); E11.9 Type 2 diabetes mellitus without complications; I10 Essential (primary) hypertension; E78.5 Hyperlipidemia, unspecified; E66.9 Obesity, unspecified; E03.9 Hypothyroidism, unspecified; G47.30 Sleep apnea, unspecified; W18.30XA Fall on same level, unspecified, initial encounter | CPT/HCPCS: 70450 ==

== ENCOUNTER 2023-01-26 10:19 | Outpatient (CLI) | payer OTHER ==
[2023-01-26 11:07] LABS: Hemoglobin 11.4 g/dL (12.0-16.0)
[2023-01-26 11:13] LABS: Hematocrit 35.5 % (36.0-47.0)
[2023-01-26 11:30] LABS: Anion Gap 19 mmol/L (10-20); BUN (Urea Nitrogen) 78 mg/dL (9.8-20.1); Calc. Creatinine Clearance 0 mL/min (70-130); Calcium 9.6 mg/dL (7.8-10.44); Carbon Dioxide 21 mmol/L (23-31); Chloride 102 mmol/L (98-107); Estimated GFR 27; Glucose 161 mg/dL (83-110); Potassium 5.2 mmol/L (3.5-5.1); Sodium 137 mmol/L (136-145)
[2023-01-26 17:57] LABS: Parathyroid Hormone - Intact 76.9 pg/mL (19.8-88.0)
== END 2023-01-26 10:20 | disposition home or self-care (01) ==
LOC: NAV RAD 10:19
PROVIDERS: ATTEND Family Medicine
DX: I50.32 Chronic diastolic (congestive) heart failure (principal); N18.30 Chronic kidney disease, stage 3 unspecified; D63.1 Anemia in chronic kidney disease; N25.81 Secondary hyperparathyroidism of renal origin
CPT/HCPCS: 36415; 71046; 80048; 83880; 83970; 85014; 85018